=== PATIENT | female | born 1955 | race Caucasian/White ===

== ENCOUNTER 2016-09-15 15:44 | Observation (INO) ==
[2016-09-15] MEDS ORDERED: Ondansetron 4 MG/2 ML VIAL IVP ONE (16:09)
[2016-09-15] MEDS ORDERED: GI Cocktail 40 ML EACH PO ONE (16:09)
--- NOTE | 2016-09-15 16:15 | Emergency Department Note ---
Disposition Clinical Impression: Elevated serum creatinine, Nausea, New onset a-fib, Hypoxia, Pulmonary nodule, Epigastric discomfort Disposition: Admitted As Inpatient Condition: Fair Referrals: NO,PCP [Primary Care Provider] - Forms: ED Satisfaction Letter Time of Disposition: 20:17 Nausea/Vomiting/Diarrhea HPI - General Chief complaint: ED Nausea/Vomiting/Diarrhea Stated complaint: N/V 3 weeks Time Seen by Provider: 09/15/16 15:49 Source: patient, EMS Mode of arrival: EMS Limitations: no limitations Nursing Notes Reviewed: Yes Vital Signs Reviewed: Yes - History of Present Illness HPI Narrative: Patient is a 61-year-old female with past medical history of obesity, hypertension, hypothyroidism. She presents today due to 4-5 days of nausea and acid reflux symptoms. Patient states that she has been having reflux of acid into her mouth she sometimes has to spit out, other times she feels that it goes to the center of her chest and then goes back down. She does not take any antacids at home. Denies any chest pain, shortness of breath, fevers, abdominal pain. No changes in bowel or bladder habits. Shows a states that her O2 saturation has been low recently, she bought an O2 tank at a real [employer] and has been using 2 L nasal cannula oxygen at home. This has not been prescribed to her. She denies any previous diagnosis of COPD, asthma any other lung diseases. - Related Data Home Medications Medication Instructions Recorded Confirmed Cetirizine HCl [Zyrtec] 10 mg PO DAILY 09/15/16 09/15/16 Diltiazem HCl [Diltiazem 12Hr ER] 120 mg PO TID 09/15/16 09/15/16 Ferrous Sulfate 325 mg PO BIDWM 09/15/16 09/15/16 HydrOXYzine Pamoate [Hydroxyzine 25 - 50 mg PO TID 09/15/16 09/15/16 Pamoate] Levothyroxine Sodium [Synthroid] 200 mcg PO QAM 09/15/16 09/15/16 Losartan/Hydrochlorothiazide 1 each PO BID 09/15/16 09/15/16 [Hyzaar 100-25 Tablet] Metoprolol [Lopressor] 100 mg PO BID 09/15/16 09/15/16 Spironolactone [Aldactone] 25 mg PO DAILY 09/15/16 09/15/16 Venlafaxine XR (24 HR) [Effexor XR] 75 mg PO DAILY 09/15/16 09/15/16 Allergies Allergy/AdvReac Type Severity Reaction Status Date / Time aspirin [ASA] AdvReac Gastrointestinal Verified 09/15/16 15:56 Upset All systems ED: reviewed and negative except as stated. Constitutional: Denies: fever Cardiovascular: Denies: chest pain, palpitations Respiratory: Reports: other (low o2 sat). Denies: cough, dyspnea, wheezes Gastrointestinal: Reports: other (indigestion) Genitourinary: Denies: urgency, dysuria Integumentary: Denies: rash Past Medical History - Past Medical History Medical history: Reports: hypertension, thyroid disease Psychiatric history: Reports: anxiety, depression - Social History Smoking Status: Never smoker Smokeless Tobacco Status: No Alcohol use: Reports: none Drug use: Reports: none Physical Exam - General Limitations: no limitations General appearance: alert, in no apparent distress, other (morbidly obese) - Head Head exam: atraumatic, normocephalic, normal inspection - Eye Eye exam: Present: normal appearance, PERRL, EOMI - ENT ENT exam: normal exam, mucous membranes moist - Neck Neck exam: Present: normal inspection, full ROM, trachea midline - Chest Chest inspection: Present: normal inspection, symmetric chest wall rise - Respiratory Respiratory exam: Present: normal lung sounds bilaterally. Absent: respiratory distress, wheezes - Cardiovascular Cardiovascular exam: Present: regular rate, normal rhythm, normal heart sounds - Abdominal Exam Abdominal exam: Present: soft, Non-Tender, other (umbilical hernia approx [id number], easily reducible no tenderness. ). Absent: tenderness, distention, guarding, rebound, rigidity - Extremities Exam Extremities exam: Present: normal inspection, full ROM. Absent: pedal edema - Neurological Exam Neurological exam: Present: alert, oriented X3 - Psychiatric Psychiatric exam: Present: normal affect, normal mood - Skin Skin exam: Present: warm, dry, intact, normal color Course Course Narrative: Patient was mid 90s on 2 L nasal cannula oxygen. Her oxygen saturation did dip once or twice into the 80s with decent waveform. This may be due to body habitus. We will obtain chest x-ray for further evaluation. Lung sounds clear , although it was limited by patient's body habitus. No abdominal tenderness on exam. Patient's symptoms consistent with GERD. We will give the patient Zofran for nausea and GI cocktail for symptomatically controlled. Due to the radiation into her chest, will also obtain troponin and basic labs. Also obtain lipase and LFTs. If workup is negative, and patient has improvement in symptoms with GI cocktail, with we will send home with PPI and follow up with primary care physician or GI. We will also have her follow up with primary care physician about oxygen use. 16:34 EKG shows A. fib. Patient was asked if she ever had A. fib in the past or irregular heart rhythm, she stated that she has never been told this. She is not on any current blood thinners. Daughter is present states that she has not been to the doctor in about 30 years. No old EKGs for comparison. This is a new diagnosis of a fib, but cannot determine acuteness due to no PCP in years. 19:45 overall, patient white blood cell within normal limits. Mild elevation in creatinine. Patient has new onset A. fib with no anticoagulation. She has also been hypoxic around 88% on 2 L nasal cannula, increased to 4 L nasal cannula to maintain oxygen in mid 90s. Troponin negative. CT of abdomen and pelvis showed no acute abnormality. There is a pulmonary nodule that was seen on chest CT, recommended follow-up and discussed with the patient the need for follow-up CT scan. There was also evidence of pulmonary artery hypertension. Patient also still has nausea and epigastric discomfort despite medications. We will admit the patient for further care. Patient was agreeable with this plan. Chest X-Ray 09/15/16 16:09 IMPRESSION: 1. Mild bibasilar atelectasis. 2. Stable cardiomegaly. 3. Suspected chronic pulmonary arterial hypertension. D/ / 09/15/2016 17:12:15 Alvaro Winn MD / [email or web address] Interpreting Provider: Alvaro Winn MD Abdomen/Pelvis CT 09/15/16 17:21 IMPRESSION: 1. No acute abnormality in the chest, abdomen or pelvis. Please note there is significant respiratory motion, which limits the evaluation of the abdomen, particularly the gallbladder. If there is a clinical concern for gallbladder pathology, a repeat CT or follow-up ultrasound is suggested. 2. Nonobstructing 4 mm right renal calculus. 3. Diverticulosis. Large ventral midline pelvic hernia, which contains nonobstructed transverse colon. 4. 4 mm right upper lobe pulmonary nodule. This requires no further imaging follow-up, unless the patient is high risk, as outlined below. 5. Evidence of pulmonary artery hypertension. RECOMMENDATIONS: Fleischner Society guidelines for follow-up and management of incidentally detected pulmonary nodules: Single Solid Nodule: Nodule size less than 6 mm In a low-risk patient, no routine follow-up. In a high-risk patient, optional CT at 12 months. - Low risk patients include individuals with minimal or absent history of smoking and other known risk factors. - High risk patients include individuals with a history or smoking or known risk factors. Radiology 2017 http://pubs.rsna.org/doi/full/10.1148/radiol.6933909672 D/ / 09/15/2016 19:25:27 Alvaro Flannery MD / mohan Interpreting Provider: Alvaro Flannery MD Chest CT 09/15/16 17:24 IMPRESSION: 1. No acute abnormality in the chest, abdomen or pelvis. Please note there is significant respiratory motion, which limits the evaluation of the abdomen, particularly the gallbladder. If there is a clinical concern for gallbladder pathology, a repeat CT or follow-up ultrasound is suggested. 2. Nonobstructing 4 mm right renal calculus. 3. Diverticulosis. Large ventral midline pelvic hernia, which contains nonobstructed transverse colon. 4. 4 mm right upper lobe pulmonary nodule. This requires no further imaging follow-up, unless the patient is high risk, as outlined below. 5. Evidence of pulmonary artery hypertension. RECOMMENDATIONS: Fleischner Society guidelines for follow-up and management of incidentally detected pulmonary nodules: Single Solid Nodule: Nodule size less than 6 mm In a low-risk patient, no routine follow-up. In a high-risk patient, optional CT at 12 months. - Low risk patients include individuals with minimal or absent history of smoking and other known risk factors. - High risk patients include individuals with a history or smoking or known risk factors. Radiology 2017 http://pubs.rsna.org/doi/full/10.1148/radiol.4888736269 D/ / 09/15/2016 19:25:27 Alvaro Flannery MD / [email or web address] Interpreting Provider: Alvaro Flannery MD Vital Signs Temperature 98.7 F 09/15/16 15:49 Pulse Rate 70 09/15/16 15:49 Respiratory Rate 18 09/15/16 15:49 Blood Pressure 132/84 09/15/16 15:49 O2 Sat by Pulse Oximetry 94 09/15/16 15:49 Temperature 98.7 F 09/15/16 15:49 Pulse Rate 95 09/15/16 19:07 Respiratory Rate 18 09/15/16 19:07 Blood Pressure 125/73 09/15/16 19:07 O2 Sat by Pulse Oximetry 94 09/15/16 19:07 Oxygen Delivery Oxygen Delivery Nasal Cannula Nausea/Vomiting/Diarrhea - [facility] Narrative Medical decision making narrative: overall, patient white blood cell within normal limits. Mild elevation in creatinine. Patient has new onset A. fib with no anticoagulation. She will need to be started on anticoagulation. She has also been hypoxic around 88% on 2 L nasal cannula, increased to 4 L nasal cannula to maintain oxygen in mid 90s. Troponin negative. CT of abdomen and pelvis showed no acute abnormality. There is a pulmonary nodule that was seen on chest CT, recommended follow-up and discussed with the patient the need for follow-up CT scan. There was also evidence of pulmonary artery hypertension. Patient also still has nausea and epigastric discomfort despite medications. We will admit the patient for further care. Patient was agreeable with this plan. 20:[address] Henriquez. She requested heparin drip and will admit the patient. - Medical Records Medical records reviewed: Yes I reviewed the patient's medical records. - Lab Data Lab results reviewed: Yes I reviewed the patient's lab results. Result diagrams: 09/15/16 16:33 09/15/16 16:33 Lab Results 09/15/16 09/15/16 09/15/16 Range/Units 16:33 16:33 16:33 WBC 11.0 (4.3-11.1) K/mcL RBC 4.39 (3.82-4.97) M/mcL Hgb 12.4 (11.5-15.4) g/dL Hct 39.6 (35.3-44.9) % MCV 90.2 (83.0-100.0) fL MCH 28.2 (28.0-33.3) pg MCHC 31.3 L (31.6-35.5) g/dL RDW 14.1 (11.5-14.5) % Plt Count 270 (140-400) K/mcL MPV 10.1 (9.4-12.4) fL Immature Gran % 1.1 (0-4) % Seg Neutrophils % 79.6 % Lymphocytes % 10.4 % Monocytes % 8.0 % Eosinophils % 0.5 % Basophils % 0.4 % Neutrophils # 8.8 (1.6-8.9) K/mcL Lymphocytes # 1.1 (0.6-4.6) K/mcL Monocytes # 0.9 (0.0-1.3) K/mcL Eosinophils # 0.1 (0.0-0.6) K/mcL Basophils # 0.0 (0.0-0.2) K/mcL Sodium 137 (136-145) mEq/L Potassium 4.1 (3.5-4.5) mEq/L Chloride 96 L (98-109) mEq/L Carbon Dioxide 30 H (19-29) mEq/L BUN 26 H (7-20) mg/dL Creatinine 1.13 H (0.57-1.11) mg/dL Est GFR ( Amer) 59 L (> 60) Est GFR (Non-Af Amer) 49 L (> 60) BUN/Creatinine Ratio 23 (6-26) Glucose 182 H (70-99) mg/dL Calculated Osmolality 293 (280-300) Calcium 10.6 (8.6-10.8) mg/dL Total Bilirubin 0.6 (0.2-1.2) mg/dL Direct Bilirubin 0.3 (0.0-0.5) mg/dL Indirect Bilirubin 0.3 (0.0-1.2) mg/dL AST 13 (5-34) Units/L ALT 12 (0-55) Units/L Alkaline Phosphatase 115 (38-126) Units/L Troponin I 0.00 (0-0.03) ng/mL Serum Total Protein 8.2 (6.0-8.3) g/dL Albumin 2.5 L (3.5-5.0) g/dL Globulin 5.7 H (2.4-3.5) g/dL Albumin/Globulin Ratio 0.4 L (1.1-2.2) Lipase 11 (8-78) Units/L - Radiology Data Radiology results reviewed: Yes I reviewed the patient's radiology results. Chest X-Ray 09/15/16 16:09 IMPRESSION: 1. Mild bibasilar atelectasis. 2. Stable cardiomegaly. 3. Suspected chronic pulmonary arterial hypertension. D/ / 09/15/2016 17:12:15 Alvaro Winn MD / bcarter Interpreting Provider: Alvaro Winn MD Abdomen/Pelvis CT 09/15/16 17:21 IMPRESSION: 1. No acute abnormality in the chest, abdomen or pelvis. Please note there is significant respiratory motion, which limits the evaluation of the abdomen, particularly the gallbladder. If there is a clinical concern for gallbladder pathology, a repeat CT or follow-up ultrasound is suggested. 2. Nonobstructing 4 mm right renal calculus. 3. Diverticulosis. Large ventral midline pelvic hernia, which contains nonobstructed transverse colon. 4. 4 mm right upper lobe pulmonary nodule. This requires no further imaging follow-up, unless the patient is high risk, as outlined below. 5. Evidence of pulmonary artery hypertension. RECOMMENDATIONS: Fleischner Society guidelines for follow-up and management of incidentally detected pulmonary nodules: Single Solid Nodule: Nodule size less than 6 mm In a low-risk patient, no routine follow-up. In a high-risk patient, optional CT at 12 months. - Low risk patients include individuals with minimal or absent history of smoking and other known risk factors. - High risk patients include individuals with a history or smoking or known risk factors. Radiology 2017 http://pubs.rsna.org/doi/full/10.1148/radiol.5649439172 D/ / 09/15/2016 19:25:27 Alvaro Flannery MD / [facility] Interpreting Provider: Alvaro Flannery MD Chest CT 09/15/16 17:24 IMPRESSION: 1. No acute abnormality in the chest, abdomen or pelvis. Please note there is significant respiratory motion, which limits the evaluation of the abdomen, particularly the gallbladder. If there is a clinical concern for gallbladder pathology, a repeat CT or follow-up ultrasound is suggested. 2. Nonobstructing 4 mm right renal calculus. 3. Diverticulosis. Large ventral midline pelvic hernia, which contains nonobstructed transverse colon. 4. 4 mm right upper lobe pulmonary nodule. This requires no further imaging follow-up, unless the patient is high risk, as outlined below. 5. Evidence of pulmonary artery hypertension. RECOMMENDATIONS: Fleischner Society guidelines for follow-up and management of incidentally detected pulmonary nodules: Single Solid Nodule: Nodule size less than 6 mm In a low-risk patient, no routine follow-up. In a high-risk patient, optional CT at 12 months. - Low risk patients include individuals with minimal or absent history of smoking and other known risk factors. - High risk patients include individuals with a history or smoking or known risk factors. Radiology 2017 http://pubs.rsna.org/doi/full/10.1148/radiol.[email or web address] D/ / 09/15/2016 19:25:27 Alvaro Flannery MD / [facility] Interpreting Provider: Alvaro Flannery MD - EKG Data EKG attestation: Yes I reviewed and interpreted this EKG. EKG results narrative: 09/15/2016 at 16:22. A. fib. Rate 83. QTC 391. Normal axis. No acute ST elevation or depression. S.B.A.R. - [email or web address] Situation: Demographics, MOA Background: Presenting Complaint, Relevant PMH, Meds, & Allergies Assessment: Vital Signs, Course and respsone to treatment, Exam Concerns, Patient/Family Expectation, Pertinant Lab Results, Outstanding Labs Recommendation: Barrier(s) to disposition, Recommendation based on pending studies, treatments, or consults S.[email or web address] Report Given to: Dr. Martinez Royal Repor Time: 20:17 Attestation Statement - Attestation Attestation: I examined this patient and my medical decision-making was reviewed with the COMPUTER OPERATIONS ANALYST/PA/Advanced Practice Nurse/Resident Physician. I agree with the documented findings, disposition and treatment plan as described except to the extent set forth below.
[2016-09-15 16:40] LABS: Basophils % 0.4 %; Eosinophils # 0.1 K/mcL (0.0-0.6); Eosinophils % 0.5 %; Hematocrit 39.6 % (35.3-44.9); Hemoglobin 12.4 g/dL (11.5-15.4); Immature Granulocytes % 1.1 % (0-4); Lymphocytes % 10.4 %; Mean Corpuscular HGB Conc 31.3 g/dL (31.6-35.5); Mean Corpuscular Hemoglobin 28.2 pg (28.0-33.3); Mean Corpuscular Volume 90.2 fL (83.0-100.0); Mean Platelet Volume 10.1 fL (9.4-12.4); Monocytes # 0.9 K/mcL (0.0-1.3); Neutrophils # 8.8 K/mcL (1.6-8.9); Platelet Count 270 K/mcL (140-400); Red Blood Count 4.39 M/mcL (3.82-4.97); Red Cell Distribution Width 14.1 % (11.5-14.5); Segmented Neutrophils % 79.6 %
[2016-09-15 16:42] LABS: Lymphocytes # 1.1 K/mcL (0.6-4.6)
[2016-09-15 16:58] LABS: Albumin 2.5 g/dL (3.5-5.0); Albumin/Globulin Ratio 0.4 (1.1-2.2); Bilirubin,Direct 0.3 mg/dL (0.0-0.5); Bilirubin,Indirect 0.3 mg/dL (0.0-1.2); Bilirubin,Total 0.6 mg/dL (0.2-1.2); Calcium 10.6 mg/dL (8.6-10.8); Globulin 5.7 g/dL (2.4-3.5); Potassium 4.1 mEq/L (3.5-4.5); Total Protein 8.2 g/dL (6.0-8.3)
[2016-09-15] MEDS ORDERED: *HR* Heparin 5,000 UNIT/ML VIAL IVP PRN ×2 (20:14)
[2016-09-15] MEDS ORDERED: *HR* Heparin 5,000 UNIT/ML VIAL IVP ONE (20:14)
[2016-09-15] MEDS ORDERED: Heparin 25,000 UNIT/500 ML D5W 25,000 UNIT/500 ML MLS IVC SCH (20:15)
[2016-09-15 20:33] LABS: INR 1.5; Prothrombin Time 16.2 Seconds (9.4-12.1)
[2016-09-15 20:35] LABS: Activated Partial Thrombo Time 28.5 Seconds (26.0-36.0)
--- NOTE | 2016-09-15 22:49 | Internal Med History&Physical ---
Date of Encounter: 09/15/16 Time of Encounter: 22:40 Assessment and Plan (1) Gastritis Current visit: Yes Status: Acute patient with morbid obesity with a BMI of >80, comes in with severe gastroesophageal reflux symptoms and dyspepsia, this is most likely being compounded by her obesity, we will manage her symptoms, IVF/antiemetics, protonix and order a RUQ USG for evaluation of the biliary system Qualifiers: Gastritis type: superficial Chronicity: acute Gastritis bleeding: without bleeding Qualified Code(s): K29.00 - Acute gastritis without bleeding (2) New onset a-fib Current visit: Yes Status: Acute it is unclear how long she has been in AFIB, we are also unable to tell if this is paroxysmal, she is however on cardizem and metoprolol at home yet she denies ay prior diagnosis of AFIB, we will continue these medications for rate control , her CHADS-VASc Score for Atrial Fibrillation Stroke Risk is 2 so she does not meet criteria for systemic anticoagulation, Aspirin low dose will do, she reports that she had significant nosebleed about 5 years ago requiring ENT input , we will thus monitor her for bleed (3) Dyspnea on exertion Current visit: Yes Status: Acute this is concerning for heart failure especially with her history of orthopnea for which she seeps in a recliner at night, her NOVOA is also worrisome for pulmonary HTN, we will order a 2D Echo for further evaluation (4) Pulmonary nodule Current visit: Yes Status: Chronic this was an incidental findings on chest CT, she has never smoked, per guidelines she does not need any followup (5) HTN (hypertension) Current visit: Yes Status: Chronic Hx of HTN on diltiazem/HCTZ/Losartan/Metoprolol at home, we will continue these home medications with BP monitoring Qualifiers: Hypertension type: essential hypertension Qualified Code(s): I10 - Essential (primary) hypertension (6) Hypothyroidism Current visit: Yes Status: Chronic she is on synthroid at home so we will continue that, we will also check TSH/FT4 Qualifiers: Hypothyroidism type: acquired Qualified Code(s): E03.9 - Hypothyroidism, unspecified (7) Depression Current visit: Yes Status: Chronic we will continue venlafaxine her home medication Qualifiers: Depression Type: major depressive disorder Major depression recurrence: recurrent Active/Remission status: in full remission Qualified Code(s): F33.42 - Major depressive disorder, recurrent, in full remission Internal Medicine - H&P: HPI Chief complaint: nausea and abdominal pain Admitted From: Emergency Dept Plans for Post Hospital Care: Home History of present illness: Ms. Munoz is a 61 year old female with a history of morbid obesity who comes in with nausea, dry heaves and abdominal pain. She reports being in her usual state of health until about 3 weeks ago when she began to have nausea, sensation of bloating and feeling like acid in her mouth intermittently. She stopped eating oily and greasy foods since these foods made her symptoms worse. Despite doing this she continued to have the aforementioned symptoms with epigastric and right upper quadrant abdominal pain. Her vomitus is mostly clear but sometimes yellowish in color. These symptoms worsened in the past 3-5 days so she presented to the ER of [place] for further evaluation. She denies NSAIDS use, melena or hematemesis. Patient also complains of orthopnea and paroxysmal nocturnal dyspnea to the point that she sleeps in a recliner at night, associated with dyspnea on exertion and occasional leg swelling. She denies previous diagnosis of heart failure, she was lost to PCP followup about a year ago and has not being hospitalized in 30 years. PAST MEDICAL/SURGICAL HISTORY HTN Hypothyroidism Anxiety/Depression Right renal calculus Diverticulosis Ventral Herniae RUL 4mm lung nodule GERD Tonsillectomy Tubal ligation SOCIAL HISTORY she has never smoked, does not drink alcohol or use illicit drugs, she lives at home with family, she is and has 3 adult female daughters who accompanied her here today FAMILY HISTORY Father is alive and has heart problems, mother is and she had uncontrolled DM as well as HTN Past Med Surg Social Fam HX - Past Medical History Medical history: hypertension, thyroid disease Psychiatric history: anxiety, depression - Social History Smoking Status: Never smoker Smokeless Tobacco Status: No Alcohol use: none Drug use: none - Family History Father Living Status: Still Living Hx Family Cardiac Disorders: Yes Hx Family Cancer: Yes (throat) Mother Living Status: Hx Family Cardiac Disorders: Yes (HTN) Hx Family Endocrine Disorder: Yes Internal Medicine - H&P: Meds Cetirizine HCl [Zyrtec] 10 mg PO DAILY 09/15/16 [History] Diltiazem HCl [Diltiazem 12Hr ER] 120 mg PO TID 09/15/16 [History] Ferrous Sulfate 325 mg PO BIDWM 09/15/16 [History] HydrOXYzine Pamoate [Hydroxyzine Pamoate] 25 - 50 mg PO TID 09/15/16 [History] Levothyroxine Sodium [Synthroid] 200 mcg PO QAM 09/15/16 [History] Losartan/Hydrochlorothiazide [Hyzaar 100-25 Tablet] 1 each PO BID 09/15/16 [ History] Metoprolol [Lopressor] 100 mg PO BID 09/15/16 [History] Spironolactone [Aldactone] 25 mg PO DAILY 09/15/16 [History] Venlafaxine XR (24 HR) [Effexor XR] 75 mg PO DAILY 09/15/16 [History] Allergies aspirin [ASA] Adverse Reaction (Verified 09/15/16 15:56) Gastrointestinal Upset All Systems PM: A 10-system review of systems was performed and is negative for pertinent findings except as documented above in the HPI. - Constitutional Vitals: Temp Pulse Resp BP Pulse Ox 98.2 F 127 18 131/83 91 09/15/16 22:04 09/15/16 22:04 09/15/16 22:04 09/15/16 22:04 09/15/16 22:04 PHYSICAL EXAMINATION: GENERAL: Adult female, lying in bed looking very fatigued, Alert, makes good eye contact, morbidly obese looking HEENT: NC/AT, EOMI, PERRLA, anicteric sclera, normal conjunctiva, supple, clear nares, dry mucous membranes, clear oropharynx, central uvula RESP: no chest wall tenderness with palpation, lungs are clear to auscultation bilaterally, reduced AE at the bases bilaterally, No crackles or wheeze CARDIO: Normal but distant heart sounds; S1 and 2, irregularly irregular rhythm , with no murmurs, no JVD, no ankle edema GI: Soft, obese abdomen, mild epigastric tenderness, no organomegaly felt, normal bowel sounds heard MUSCULOSKELETAL: grossly normal movements bilaterally, significant non pitting edema of the lower extremities bilaterally EXTREMITIES: No clubbing, significant non pitting edema of the lower extremities bilaterally NEUROLOGIC: CN 2-12 intact grossly. No motor/sensory deficit appreciated, PSYCHIATRY: AAO x 3. Mood is fair, exhibits appropriate judgement SKIN: no ulcers, hypertrophic nails Internal Med - H&P Results - Labs CBC & Chem 7: 09/16/16 03:24 09/16/16 03:24 - EKG Data -: EKG Interpreted by Myself Rate: tachycardia - Diagnostic Studies CT scan - chest Status: image reviewed by me CT scan - abdomen Status: image reviewed by me
[2016-09-15] MEDS ORDERED: Naloxone 0.4 MG/ML INJ IVP PRN (22:52)
[2016-09-16] MEDS: Ondansetron 4 MG/2 ML VIAL IVP PRN ×2 (00:13→08:32)
[2016-09-16] MEDS: Losartan/HCTZ 50-12.5 TABLET PO SCH ×3 (00:39→21:18)
[2016-09-16] MEDS: Metoprolol 100 MG TABLET PO SCH ×3 (00:39→21:18)
[2016-09-16] MEDS: dilTIAZem HCl 60 MG TABLET PO SCH ×4 (00:40→23:10)
[2016-09-16 00:59] LABS: Bilirubin,Urine Small (Negative); Blood,Urine Moderate (Negative); Clarity,Urine Cloudy (Clear); Color,Urine Yellow (Yellow); Glucose,Urine (UA) Normal (Normal); Ketones,Urine Trace mg/dL (Negative); Leukocyte Esterase,Urine Small (Negative); Nitrite,Urine Negative (Negative); PH,Urine 5.5 pH Units (5.0-8.0); Protein,Urine Trace mg/dL (Neg-Trace); Urobilinogen,Urine Normal (Normal)
[2016-09-16 01:00] LABS: Bacteria,Urine None Seen per hpf (None-Few); Hyaline Casts,Urine None Seen per lpf (None-Few); Squamous Epithelial Cell,Urine Many per lpf (None-Few)
[2016-09-16] MEDS ORDERED: Pantoprazole 40 MG VIAL IVP ONE (01:01)
[2016-09-16] MEDS ORDERED: Mag Hydrox/Al Hydrox/Simeth 30 ML UDC PO PRN (01:01)
[2016-09-16] MEDS ORDERED: *HR* HYDROmorphone (PF) 1 MG/ML SYRINGE IVP ONE (02:06)
[2016-09-16] MEDS: Mag Hydrox/Al Hydrox/Simeth 30 ML UDC PO PRN ×2 (02:22→11:14)
[2016-09-16 04:35] LABS: Basophils # 0.1 K/mcL (0.0-0.2); Basophils % 0.6 %; Eosinophils # 0.1 K/mcL (0.0-0.6); Eosinophils % 0.7 %; Hematocrit 40.3 % (35.3-44.9); Hemoglobin 12.4 g/dL (11.5-15.4); Lymphocytes # 1.4 K/mcL (0.6-4.6); Lymphocytes % 13.8 %; Mean Corpuscular HGB Conc 30.8 g/dL (31.6-35.5); Mean Corpuscular Hemoglobin 28.7 pg (28.0-33.3); Mean Corpuscular Volume 93.3 fL (83.0-100.0); Mean Platelet Volume 10.5 fL (9.4-12.4); Monocytes # 0.9 K/mcL (0.0-1.3); Monocytes % 9.1 %; Neutrophils # 7.6 K/mcL (1.6-8.9); Platelet Count 289 K/mcL (140-400); Red Blood Count 4.32 M/mcL (3.82-4.97); Red Cell Distribution Width 14.1 % (11.5-14.5); Segmented Neutrophils % 73.8 %
[2016-09-16 04:47] LABS: Hemoglobin A1C 8.2 %
[2016-09-16 04:55] LABS: Calcium 10.3 mg/dL (8.6-10.8); Chol/HDL Ratio 8.5 (0-4.9); Magnesium 1.4 mg/dL (1.6-2.6); Phosphorous 4.4 mg/dL (2.3-4.7)
[2016-09-16 05:09] LABS: Thyroid Stimulating Hormone 5.956 mcIU/mL (0.350-4.840)
[2016-09-16] MEDS: Pantoprazole 40 MG VIAL IVP SCH ×2 (06:20→18:11)
[2016-09-16] MEDS ORDERED: Perflutren Lipid Microsphere 1.3 ML in 0.9 % Sodium Chloride 8.7 ML IVP ONE (08:48)
--- NOTE | 2016-09-16 12:42 | ECHO - Doppler Report ---
Echo with Imaging Enhancement Agent Name: Chacha Munoz Date of Study: 09/16/2016 Date: 1955 Ht: 64.0 in Medical Record#: [id number] Age: 61 Wt: 467.0 lb Gender: Female BSA: 2.8 Order #: [id number] Location: [facility] Room #: 3B39 Reading Physician: Jigar Acosta DO, MARISOL HERNANDEZ Fur Repairer: Loki Taylor Ordering Physician: Marco Tong MD Primary Physician: None Indications: Check LVEF Impressions: Technically sub-optimal due to body habitus. LVEF Despite the use of Defnity, LV function could not be accurately assessed. In the views obtained, LV function appeared grossly normal. Mild concentric left ventricular hypertrophy. Mildly dilated left ventricle. Indeterminate diastolic function. Right ventricle was not well visualized. Unable to estimate RVSP due to lack of TR jet. No obvious significant valvular dysfunction. Findings: Study Quality * Technically sub-optimal due to body habitus. ECG Findings * Normal sinus rhythm. Left Ventricle * LVEF Despite the use of Defnity, LV function could not be accurately assessed. In the views obtained, LV function appeared grossly normal. * Mild concentric left ventricular hypertrophy. * Mildly dilated left ventricle. * Indeterminate diastolic function. Right Ventricle * Right ventricle was not well visualized. Left Atrium * Left atrium is not well visualized. Right Atrium * Right atrium is not well visualized. Interatrial Septum * Interatrial septum not well evaluated. Aortic Valve * Aortic valve not well visualized. * No aortic regurgitation. * No aortic stenosis. Mitral Valve * Mitral valve not well visualized. * No mitral stenosis. * No mitral regurgitation. Tricuspid Valve * Tricuspid valve not well visualized. * No tricuspid regurgitation. * Unable to estimate RVSP due to lack of TR jet. Pulmonic Valve * Pulmonic valve not well visualized. Aorta * Normally sized aortic root. Pericardium * The pericardium appears normal. IVC * Normal IVC dimensions and inspiratory collapse. Pulmonary Artery * Pulmonary artery not well visualized. History Hypertension Family History of CAD Contrast: Definity 1.3 ml in 8.7 ml of saline 4 ml. Measurements: BP: 117/ 72 2D Normal Values RVIDd: 3.47 cm <2.7 cm IVSd: 1.30 cm 0.6 - 1.0 cm LVIDd: 5.70 cm 3.7 - 5.6 cm LVPWd: 1.30 cm 0.6 - 1.1 cm LVIDs: 4.87 cm 1.5 - 3.6 cm AO: 2.80 cm < 4.0 cm %FS: 21.70 cm >25 % LA volume: Tricuspid Valve TV Regurg Peak Grad: 16.00mmHg TV Regurg Peak Marlon: 2.02m/sec Updated by Jigar Acosta DO, DAVID, JOSEFINA DAMON on 09/16/2016 12:35:25 PM electronically signed on 09/16/2016 12:36:13 PM with status of Final Wall Motion Kevin: 1=Normal, 2=Hypokinesis, 3=Akinesis, 4=Dyskinesis, 5=Aneurysmal, 6=Hyperkinetic, X=Not Visualized (Blank)=Missing
[2016-09-16] MEDS: hydrOXYzine pamoate 25 MG CAPSULE PO SCH ×3 (16:07→18:11)
[2016-09-16] MEDS: Spironolactone 25 MG TABLET PO SCH (16:08)
[2016-09-16] MEDS: Aspirin 81 MG TAB.CHEW PO SCH (16:08)
[2016-09-16] MEDS: Venlafaxine XR (24 HR) 75 MG CAP.ER.24H PO SCH (16:09)
[2016-09-16] MEDS: Loratadine 10 MG TABLET PO SCH (16:09)
[2016-09-16] MEDS: Sucralfate 1 GM TABLET PO SCH ×2 (16:11→21:18)
--- NOTE | 2016-09-16 16:29 | Internal Med Progress Note ---
Date of Encounter: 09/16/16 Time of Encounter: 14:30 - Assessment and plan (1) Gastritis Current Visit: Yes Status: Acute Assessment and plan: Patient reports burning in the epigastric area with nausea. Is controlled with antiemetics here. Patient is unable to tell me if she is vomiting or coughing in thin white frothy substance. She is unsure if it is from a cough or an actual vomit. She says that she does at times feel cool sensation in her upper chest and she clears her throat. This is most likely due to obesity I did talk with her regarding weight loss and diet change. I have started her on a clear liquid diet after being nothing by mouth for her gallbladder ultrasound. I added Carafate 1 g 4 times a day to her IV protonix. Most likely we will send her for outpatient follow-up if we can get her pain under control. Her gallbladder ultrasound today showed very limited study due to body habitus. Probable cholelithiasis, gallbladder wall thickening to between 8 and 12 mm, suggestive of chronic cholecystitis. No suggestion of acute cholecystitis. Ultrasound also showed diffuse hepatic steatosis. There is a probable lymph node in the patsy hepatic region, limited evaluation of the pancreas. She is tender to palpation in epigastric area. Her transaminases are not elevated, and her albumin is low. IV Protonix 40 mg Carafate 1 g 4 times a day with meals Anti-emetics as needed Probable outpatient GI follow-up. Qualifiers: Gastritis type: superficial Chronicity: acute Gastritis bleeding: without bleeding Qualified Code(s): K29.00 - Acute gastritis without bleeding (2) Nausea Current Visit: Yes Status: Acute Assessment and plan: Plan as above. (3) Debility Current Visit: Yes Status: Acute Assessment and plan: Patient states that she is unable to stand for more than 2 minutes at a time due to leg weakness. PT and OT have evaluated her and recommended halfway facility for continued physical therapy. I discussed continuing physical therapy, diet change, and increasing activity level for overall well- being and continued health. Social work consult is in Continue physical therapy Patient up to bedside chair 3 times a day with assistance. (4) Type 2 diabetes mellitus Current Visit: Yes Status: Acute Assessment and plan: Patient's A1c elevated at 8.2. Patient admits that she has her bring food to her since she is too large and debilitated to get food on her own. I discussed diet change, counting calories, and counting carbohydrates. She states her is diabetic as well. I consulted the dietitian, as well as para educator. I do not feel confident the patient will adhere to lifestyle and diet changes. I will start Accu-Cheks before meals and at bedtime to monitor blood sugar during hospital stay. I will start metformin on discharge. Qualifiers: Diabetes mellitus complication status: without complication Diabetes mellitus exterminator helper insulin use: without skilled nursing use Qualified Code(s): E11.9 - Type 2 diabetes mellitus without complications (5) Pulmonary nodule Current Visit: Yes Status: Chronic Assessment and plan: Patient has 4 mm right upper lobe pulmonary nodule. It requires no further imaging per the Fleischner Society guidelines. (6) HTN (hypertension) Current Visit: Yes Status: Chronic Assessment and plan: Chronic. Well controlled. Continue home medications. Qualifiers: Hypertension type: essential hypertension Qualified Code(s): I10 - Essential (primary) hypertension (7) Depression Current Visit: Yes Status: Chronic Assessment and plan: Chronic. Continue medications from home. Qualifiers: Depression Type: major depressive disorder Major depression recurrence: recurrent Active/Remission status: in full remission Qualified Code(s): F33.42 - Major depressive disorder, recurrent, in full remission (8) Dyspnea on exertion Current Visit: Yes Status: Acute Assessment and plan: Patient becomes short of breath with almost any exertion, including movement in bed. This is due to chronic debility. Patient states that she can only stand for about 2 minutes without becoming weak and fatigued and short of breath. Continue PT and OT. Recommended halfway facility after discharge for continued physical therapy to regain strength. (9) Morbid obesity with BMI of 70 and over, adult Current Visit: Yes Status: Acute Assessment and plan: Chronic. I have discussed lifestyle changes and exercise, diet. I have consulted dietitian and bait man Continue physical therapy and increase activity (10) DVT prophylaxis Current Visit: Yes Status: Acute Assessment and plan: Lovenox subcutaneous Peptic bedside with assistance 3 times a day Compression hose - Time Spent With Patient less than 15 minutes - Subjective Interval history: Patient reports burning in the epigastric area and nausea. She does state is controlled with medication. Very hard to get her to answer questions at times, she denies full reflux symptoms but says occasionally she gets a "sensation in her upper chest and she does clear her throat frequently. She says that she is hungry and feels that she is nauseated due to the fact that she has not eaten. She says that she is spitting up something that is clear and frothy however I found it to be impossible to ascertain whether she is coughing or vomiting. She says that she is not sure if she has producing that from a cough or whether she has been vomiting. I did not witness either. I am adding Carafate 1 g 4 times a day to her Protonix 40 mg IV that she is getting here and will try a clear liquid diet. I discussed patient's A1c with her. I have consulted bait man and dietitian. I do not feel the patient is motivated to do diet and lifestyle modifications alone. I will start Accu-Cheks before meals and at bedtime to trend blood sugar over time. - Constitutional Vitals: Temp Pulse Resp BP Pulse Ox 98.3 F 75 16 129/60 93 09/16/16 15:41 09/16/16 15:41 09/16/16 15:41 09/16/16 15:41 09/16/16 15:41 General appearance: Present: cooperative, A&O X 3, morbidly obese, pleasant, answers questions appropriately - Head Head exam: Present: normal inspection - Eye Eye exam: Present: normal appearance, conjuntiva pink - ENT ENT exam: Present: mucous membranes moist, normal exam - Neck Neck exam general surgery: Present: normal inspection. Absent: lymphadenopathy , tenderness - Respiratory Respiratory exam: Present: decreased breath sounds, CTAB. Absent: rales, respiratory distress, rhonchi, stridor, wheezes, tachypnea - Cardiovascular Cardiovascular exam: Present: diastolic murmur, RRR, +S1, +S2, systolic murmur - GI/Abdominal GI/Abdominal exam: Present: distended, firm, hyperactive bowel sounds. Absent: tenderness - Extremities Exam Extremities exam: Present: normal capillary refill, pedal edema, warm, radial pulses palpable and symetrical. Absent: full ROM, tenderness - Neurological Exam Neurological exam: Present: alert, oriented X3, no focal deficits. Absent: facial droop, speech deficit Internal Medicine: Result - Labs CBC & Chem 7: 09/16/16 03:24 09/16/16 03:24 Labs: Short CBC 09/16/16 Range/Units 03:24 WBC 10.2 (4.3-11.1) K/mcL Hgb 12.4 (11.5-15.4) g/dL Hct 40.3 (35.3-44.9) % Plt Count 289 (140-400) K/mcL Neutrophils # 7.6 (1.6-8.9) K/mcL BMP 09/16/16 03:24 Sodium 140 Potassium 4.0 Chloride 96 L Carbon Dioxide 34 H BUN 24 H Creatinine 1.12 H Glucose 177 H Calcium 10.3 Urine 09/16/16 Range/Units 00:40 Urine Color Yellow (Yellow) Urine Clarity Cloudy A (Clear) Urine pH 5.5 (5.0-8.0) pH Units Ur Specific [place] 1.020 (1.010-1.025) Urine Protein Trace (Neg-Trace) mg/dL Urine Glucose (UA) Normal (Normal) mg/dL - ABG Interpretation ABG results: PT/INR, D-dimer PT 16.2 Seconds (9.4-12.1) H 09/15/16 16:33 - Impressions Impressions Abdomen Ultrasound 09/16/16 12:30 IMPRESSION: Limited study. Probable cholelithiasis. Wall of the gallbladder suggestive of chronic cholecystitis. No pericholecystic fluid to suggest acute cholecystitis noted. Diffuse hepatic steatosis. Probable lymph node in the patsy hepatic region. Limited evaluation of the pancreas. D/ / 09/16/2016 14:51:41 Russ Díaz MD / Sharon Ansari Interpreting Provider: Russ Díaz MD Consult Discharge Plan - Plan Referrals: NO,PCP [Primary Care Provider] -
--- NOTE | 2016-09-16 18:21 | Electrocardiograph Report ---
[address] [address] Test Date: 2016-09-15 Pat Name: Chacha Munoz Department: 102 Room: 3B39 Gender: F Manhole Stripper: Kasie : 1955 Requested By: Kali Araya Order Number: [id number] Reading MD: Mitchel Suarez MD Measurements Intervals [place] Rate: 83 P: MI: 0 QRS: 7 QRSD: 88 T: 64 QT: 352 QTc: 391 Interpretive Statements ATRIAL FIBRILLATION Electronically Signed On 09-16-2016 18:19:31 EDT by Mitchel Suarez MD
[2016-09-17] MEDS: Ondansetron 4 MG/2 ML VIAL IVP PRN (00:30)
[2016-09-17] MEDS ORDERED: *HR* Enoxaparin 40 MG/0.4 ML SYRINGE SQ SCH (06:00)
[2016-09-17] MEDS: Pantoprazole 40 MG VIAL IVP SCH (06:08)
[2016-09-17] MEDS: dilTIAZem HCl 60 MG TABLET PO SCH ×2 (08:24→16:15)
[2016-09-17] MEDS: Losartan/HCTZ 50-12.5 TABLET PO SCH (08:40)
[2016-09-17] MEDS: hydrOXYzine pamoate 25 MG CAPSULE PO SCH ×2 (08:40→16:39)
[2016-09-17] MEDS: Sucralfate 1 GM TABLET PO SCH ×3 (08:40→16:39)
[2016-09-17] MEDS: Loratadine 10 MG TABLET PO SCH (08:40)
[2016-09-17] MEDS: Aspirin 81 MG TAB.CHEW PO SCH (08:40)
[2016-09-17] MEDS: Venlafaxine XR (24 HR) 75 MG CAP.ER.24H PO SCH (08:41)
[2016-09-17] MEDS: Metoprolol 100 MG TABLET PO SCH (08:41)
[2016-09-17] MEDS: Spironolactone 25 MG TABLET PO SCH (08:41)
[2016-09-17] MEDS: Amoxicillin 500 MG CAPSULE PO SCH ×2 (10:36→16:38)
[2016-09-17 11:10] VITALS: BP 108/69
--- NOTE | 2016-09-17 16:31 | Discharge Summary ---
Date of Encounter: 09/17/16 Time of Encounter: 08:30 - Discharge Diagnosis (1) Gastritis Priority: Primary Status: Acute Comments: Patient still reports burning in the epigastric area. She states that nausea has resolved today. She was not doing well with her clear liquid diet and did request a regular diet. She ate a small amount of food and tolerated it well. She reports intermittent, infrequent sharp pains in her stomach. Her abdomen is obese, firm, bowel sounds heard throughout. I did speak with our GI nurse practitioner today who agrees with treatment plan and says that unfortunately, due to patient's size, they will not be able to accommodate her for an EGD and recommended referral to [facility]. I spoke with Palmer at the [facility] referral line, who faxed me a referral form. I filled out the necessary form and faxed it back immediately. Palmer said that he will personally be looking for the fax and attempt to expedite her referral to GI. I will send patient home on PPI and Carafate We have discussed diet modifications. I was hoping that dietary would see her today, however I am uncertain if they may contact or not. Qualifiers: Gastritis type: superficial Chronicity: acute Gastritis bleeding: without bleeding Qualified Code(s): K29.00 - Acute gastritis without bleeding (2) Nausea Priority: Secondary Status: Acute Comments: Patient denies nausea today. Plan as above Will send patient home with prescription for metoclopramide 10 mg by mouth. This is almost $4 list at [facility]. (3) Debility Priority: Secondary Status: Chronic Comments: Patient is primarily homebound, BMI 80.3. She states that she is unable to stand for more than 2-3 minutes at a time. PT has recommended rehabilitation at SNF, patient is self-pay and is unable to pay for fci care. We have established care with a primary care nurse practitioner in [place]. (4) Type 2 diabetes mellitus Priority: Secondary Status: Acute Comments: A1c 8.2. Accu-Cheks have been over 200 today. I referred patient to inclusion paraeducator. Again, I did make a dietary referral but I am not sure if they may contact today. I spoke with patient's new primary care provider Kaci Chauhan who said that she will attempt to have patient attend diabetes education classes that are free of charge. Patient will be started on metformin 500 mg by mouth twice a day I did educate her on the potential GI side effects, she is aware. Qualifiers: Diabetes mellitus complication status: without complication Diabetes mellitus chcf insulin use: without chcf use Qualified Code(s): E11.9 - Type 2 diabetes mellitus without complications (5) Pulmonary nodule Priority: Secondary Status: Chronic Comments: Patient has a 4 mm right upper lobe pulmonary nodule. Based on the [employer] guidelines, there is no further imaging required. Patient is aware of both the nodule and the need for no follow-up. (6) HTN (hypertension) Priority: Secondary Status: Chronic Comments: Chronic. Well controlled Continue home medications Qualifiers: Hypertension type: essential hypertension Qualified Code(s): I10 - Essential (primary) hypertension (7) Depression Priority: Secondary Status: Chronic Comments: Chronic. Continue home medications. Qualifiers: Depression Type: major depressive disorder Major depression recurrence: recurrent Active/Remission status: in full remission Qualified Code(s): F33.42 - Major depressive disorder, recurrent, in full remission (8) Dyspnea on exertion Priority: Secondary Status: Acute Comments: Patient reports becoming short of breath with almost any exertion, including moving in bed. Patient is chronically debilitated and deconditioned. She states that she can only stand for about 2-3 minutes without becoming weak and fatigued, short of breath. Patient has requested a bariatric bedside commode and I will write a prescription for that for her to use at home. (9) Morbid obesity with BMI of 70 and over, adult Priority: Secondary Status: Chronic Comments: I spoke with patient regarding lifestyle changes. I also discussed diet changes with her. I referred her to swati Lara the make contact with her today. I also made a referral to the inclusion paraeducator. I spoke with her new primary care physician Kaci Chauhan who says that she will attempt to refer patient to diabetic education classes in [place], [place] that are free of charge. (10) DVT prophylaxis Priority: Secondary Status: Acute Comments: Lovenox subcutaneous Up to bedside commode, chair with assistance Compression hose. - Discharge Medications Prescriptions: Amoxicillin [Amoxil] 500 mg PO TID #30 capsule Metformin [Glucophage] 500 mg PO BIDWM #60 tablet Ranitidine HCl [Zantac] 150 mg PO BID #60 tablet Sucralfate [Carafate] 1 gm PO QIDAC #120 tablet Home Medications: Cetirizine HCl [Zyrtec] 10 mg PO DAILY 09/15/16 [History] Diltiazem HCl [Diltiazem 12Hr ER] 120 mg PO TID 09/15/16 [History] Ferrous Sulfate 325 mg PO BIDWM 09/15/16 [History] HydrOXYzine Pamoate [Hydroxyzine Pamoate] 25 - 50 mg PO TID 09/15/16 [History] Levothyroxine Sodium [Synthroid] 200 mcg PO QAM 09/15/16 [History] Losartan/Hydrochlorothiazide [Hyzaar 100-25 Tablet] 1 each PO BID 09/15/16 [ History] Metoprolol [Lopressor] 100 mg PO BID 09/15/16 [History] Spironolactone [Aldactone] 25 mg PO DAILY 09/15/16 [History] Venlafaxine XR (24 HR) [Effexor XR] 75 mg PO DAILY 09/15/16 [History] Amoxicillin [Amoxil] 500 mg PO TID #30 capsule 09/17/16 [Rx] Metformin [Glucophage] 500 mg PO BIDWM #60 tablet 09/17/16 [Rx] Ranitidine HCl [Zantac] 150 mg PO BID #60 tablet 09/17/16 [Rx] Sucralfate [Carafate] 1 gm PO QIDAC #120 tablet 09/17/16 [Rx] Allergies/Adverse Reactions: Allergies aspirin [ASA] Adverse Reaction (Verified 09/15/16 15:56) Gastrointestinal Upset Procedures/tests Complete & Pending: Procedures Performed prior 72 hours Category Date Time Status US abdomen limited [US] Routine Exams 09/16/16 12:30 Completed EV echocardiogram w enhance Routine Y 09/16/16 22:51 Completed Date of admission: 09/15/16 20:21 Primary care physician: PCP NO Consults: 09/15/16 22:54 Consult to Occupational Therapy [CONS] Routine Comment: Evaluate, develop and implement POC Consult to Physical Therapy [CONS] Routine Comment: Evaluate, develop and implement POC 09/15/16 22:55 Consult to Nutrition [CONS] Routine Comment: Consulting Provider: NUTRITION Reason for Dietary Consult: Diet Education 09/16/16 13:13 Consult to [place] [CONS] Routine Reason for SW Consult: discharge planning 09/16/16 16:42 Consult to R[facility] Helper [CONS] Routine Comment: Discharging clinician: Carito Wyatt Anticipated date of discharge: 09/17/16 - Patient Status Disposition: Home, Self-Care Condition: Good Functional capacity at discharge: wheelchair bound Overall status at discharge: patient is progressing back to baseline - Discharge Instructions Instructions: Renal Failure Diet (DC), Meal Planning with the Plate Model (GEN) , Meal Planning with Diabetes Exchanges (DC), Meal Planning with Diabetes Exchanges (GEN), Diabetes Mellitus Type 2 in Adults, Cyberathlete (GEN) Follow Up With: Kaci Chauhan, WEB SITE MANAGER [Advanced Practice Nurse] - (This clinic is a walk in clinic only. ) Additional Instructions: Take your new medications as directed Follow up with Kaci Chauhan as soon as possible [facility] will call you for an appointment with the GI clinic Continue your home medications is normal. Make sure you are drinking plenty of fluids - Diet and Activity Activity: increase activity as tolerated, resume usual activities as tolerated Diet: diabetic diet Hospital course: Ms. Munoz is a 61 year old female with a history of atrial fibrillation, obesity, hypertension, hypothyroidism. She presented to the emergency department on the after 4-5 days of nausea epigastric tenderness. She states that she has been having reflux of acid into her mouth, sometimes has to spit it out, sometimes she feels as if it goes into the center of her chest and then goes back down. She is not taking any [id number] antacids at home. Patient with recent his per history of dyspnea on exertion debility and deconditioning. However with the epigastric pain she does not have any new or different shortness of breath. She denies abdominal pain or fevers. Her epigastric area is tender to palpation. She denies vomiting or diarrhea. She is basically homebound, family reports depression. Her BMI is 80.3 around difficult, and causes shortness of breath. Patient had ultrasound of the abdomen done. It showed probable cholelithiasis with gallbladder wall thickening suggestive of chronic cholecystitis. There is no fluid to suggest acute cholecystitis. She has diffuse hepatic steatosis. There is a limited evaluation of the pancreas, and a probable lymph node in the patsy hepatic region. I spoke with GI here today who felt that the lymph node is most likely not concerning. They acknowledge the fact that the patient most likely needs surgery, however were not able to accommodate the patient due to her size and recommended a referral to [facility] GI clinic. I spoke with Palmer at the [facility] referral center, filled out the appropriate paperwork, and faxed the form back immediately to get her an appointment with the GI specialist. Patient had an echocardiogram on September 16. Technically suboptimal study due to body habitus. Even with contrast LV function and ejection fraction cannot be accurately assessed. In the views that were obtained LV function appeared grossly normal. There is a mildly dilated left ventricle and indeterminate diastolic function. There is no obvious significant valvular dysfunction, and right ventricle is not well visualized. Patient was found to have A. fib. She denies diagnosis of this in the past, however, is on Lopressor and diltiazem. Both have been continued for rate control. She also takes a low-dose aspirin for anticoagulation. This will be continued at home. Patient's A1c was elevated at 8.2. I will start patient on metformin 500 mg by mouth twice a day. I spoke with her new primary care provider, Kaci Chauhan, who is a nurse practitioner in [place], [place]. She is aware of patient and is expecting to see her soon. extension educator did make it to the department prior to patient being discharged. She did provide her with an Accu-Chek machine and strips and necessary supplies. She also provided her with some diabetic education pamphlets about food choices. Patient actually does seem receptive to education today and seems motivated to not be on multiple medications. Patient will be given a bariatric bedside commode since she has dyspnea on exertion. Patient also pulled go home on Zantac 150 mg by mouth twice a day and Carafate 1 g by mouth 4 times a day. Ultimately I would have liked to have had her on a PPI, however she is self-pay and they are very expensive. The Zantac is on the $4 list at [facility], and I provided her with a coupon for the Carafate. The metformin is also on the $4 list [facility]. Patient also is being treated for urinary tract infection strep agalactiae. Greater than 100,000 CFU's in specimen. The suggested antibiotic is amoxicillin 500 mg by mouth 3 times a day 10 days. I have sent her home with a prescription for this and education to complete full course. She said that she was having urinary symptoms, such as burning and incontinence. Patient is alert and awake, family is here with patient. Labs and vital signs have all been stable. Patient is appropriate and stable for discharge. - Time Spent with Patient Total time spent providing and/or coordinating discharge services: Greater than 30 minutes Specific discharge activities: I spoke with patient's new primary care physician by phone, I was on the phone and faxing referral information with [facility] for GI referral. I had multiple conversations with patient and family today regarding prescriptions, follow-up, and condition. I spent 35-45 minutes with this patient discussing discharged today. - Constitutional Vitals: Temp Pulse Resp BP Pulse Ox 97.4 F L 79 15 108/69 92 09/17/16 15:22 09/17/16 15:22 09/17/16 15:22 09/17/16 11:08 09/17/16 15:22 General appearance: Present: cooperative, A&O X 3, morbidly obese, pleasant, answers questions appropriately - Head Head exam: Present: normal inspection - Eye Eye exam: Present: EOMI, conjuntiva pink - ENT ENT exam: Present: mucous membranes moist, normal exam - Neck Neck exam general surgery: Present: normal inspection. Absent: lymphadenopathy , tenderness - Respiratory Respiratory exam: Present: decreased breath sounds, CTAB. Absent: rales, rhonchi - Cardiovascular Cardiovascular exam: Present: RRR, +S1, +S2. Absent: diastolic murmur, systolic murmur - GI/Abdominal GI/Abdominal exam: Present: tenderness. Absent: hepatomegaly Additional comments: Tender in epigastric area to palpation. - Extremities Exam Extremities exam: Present: pedal edema, warm, radial pulses palpable and symetrical. Absent: normal inspection, mottling, tenderness - Neurological Exam Neurological exam: Present: alert, oriented X3, no focal deficits, strengths equal and symetr throughout. Absent: facial droop, speech deficit
== END 2016-09-17 19:00 | disposition home or self-care (01) ==
LOC: 3BNU 15:44 → EMEROO 15:44 → 3BNU 21:11
PROVIDERS: ADMIT Family Medicine; ATTEND Registered Nurse